=== PATIENT | male | born 1980 | race Caucasian/White ===

== ENCOUNTER 2018-06-14 21:10 | Emergency (ER) | payer MEDICARE, OTHER, MEDICAID ==
[2018-06-14] MEDS ORDERED: LIDOCAINE 1% 2 ML VIAL INJ ONE (21:20)
[2018-06-14] MEDS ORDERED: LIDOCAINE HCL 2% (MOUTH-THROAT) 15 ML UD ONE (21:28)
[2018-06-14] MEDS ORDERED: FLUCONAZOLE 100 MG TAB GT ONE (22:35)
[2018-06-14] MEDS ORDERED: levoFLOXacin 500 MG TAB GT ONE (22:35)
[2018-06-14] MEDS ORDERED: predniSONE 20 MG TAB PO ONE (22:36)
--- NOTE | 2018-06-14 22:40 | ED.PDOC ---
History of Present Illness - General Chief Complaint: Respiratory Problem Time Seen by Provider: 06/14/18 21:39 Source: patient, [facility] Exam Limitations: clinical condition - History of Present Illness Initial Comments: The patient's a 37-year-old male sent from [facility] secondary to difficulty with removing his tracheostomy. Staff is attempting to change of tracheostomy however they were unable to remove it. He is not having any difficulty breathing. There is some irritation surrounding the tracheostomy site. No evidence of any abscess or really very significant cellulitis. He has been oxygenating well without any difficulties with breathing. No fevers. Timing/Duration: 1 hour Severity: mild Improving Factors: nothing Worsening Factors: nothing Associated Symptoms: denies symptoms Allergies/Adverse Reactions: Allergies Hydrocodone Allergy (Mild, Verified 12/01/15 17:32) Other Rash, hives Morphine Allergy (Mild, Verified 12/01/15 17:32) Other Hives, itching, crying, humming Sulfamethoxazole w/Trimethoprim [From Bactrim] Allergy (Mild, Verified 12/01/15 17:32) Rash Home Medications: Ambulatory Orders Aluminum & Magnesium Hydroxide [Maalox] 30 ml PEG DAILY #0 08/27/13 Aspirin 325 mg PEG DAILY #0 08/27/13 Demeclocycline HCl 300 mg PEG QID #0 08/27/13 Docusate Sodium [Diocto] 100 mg PEG BID #0 08/27/13 Esomeprazole Magnesium [Nexium] 40 mg PEG DAILY #0 08/27/13 Ipratropium [place] Nebs [Atrovent NEBS] 2.5 ml INH QID #0 08/27/13 Magnesium Hydroxide [Milk Of Magnesia] 30 ml PEG DAILY PRN #0 ud 08/27/13 Sennosides [Natural Senna Laxative] 1 tab PEG BID #0 08/27/13 Acetaminophen Suppository [Tylenol Suppository] 650 mg PEG Q4-6H PRN 09/19/14 Diphenhydramine HCl [Benadryl Allergy] 25 mg PEG .Q8HR PRN 09/19/14 Ipratropium/Albuterol [Duoneb] 3 ml INH .Q6H PRN 09/19/14 Promethazine Supp [Phenergan Suppository] 25 mg PEG .Q6H PRN 09/19/14 Levofloxacin [Levaquin] 250 mg GT DAILY #3 tablet 06/14/18 predniSONE [Prednisone] 20 mg GT DAILY #3 tab 06/14/18 Review of Systems - Review of Systems Constitutional: States: no symptoms reported EENTM: States: other - little bit of increased pain around his ostomy site. Respiratory: States: no symptoms reported Cardiology: States: no symptoms reported Gastrointestinal/Abdominal: States: no symptoms reported Genitourinary: States: no symptoms reported Musculoskeletal: States: no symptoms reported Skin: States: no symptoms reported Neurological: States: no symptoms reported All other Systems: No Change from Baseline Past Medical History (General) - Patient Medical History Hx Seizures: No Hx Stroke: Yes Hx Dementia: No Hx Asthma: No Hx of COPD: No Hx Cardiac Disorders: Yes Hx Congestive Heart Failure: No Hx Pacemaker: No Hx Hypertension: No Hx Thyroid Disease: No Hx Diabetes: No Hx Gastroesophageal Reflux: No Hx Renal Disease: No Hx Cancer: Yes - brain Hx of HIV: No Hx MRSA: No MRSA Source:: LUNGS - Social History Hx Tobacco Use: No Hx Alcohol Use: No Hx Substance Use: No Hx Physical Abuse: No Hx Emotional Abuse: No Family Medical History - Family History Mother Family History: Unknown Physical Exam - Physical Exam General Appearance: Alert, Comfortable, No apparent distress Eye Exam: bilateral normal Ears, Nose, Throat: hearing grossly normal, normal ENT inspection, normal pharynx Neck: other - tracheostomy is in place however there is mild inflammation of tracheostomy site. Respiratory: lungs clear, normal breath sounds, no respiratory distress, no accessory muscle use - the patient is not requiring the ventilator at this time. 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 Upon arrival I prepared the replacement tracheostomy and was unable to remove the old one even with a fair amount of force. A second attempt was tried after some lidocaine gel was applied around the tracheostomy site to reduce discomfort. He did have a small amount of bleeding, but I was again unable to remove it. Subsequently a nasal laryngoscope was used to look down the tracheostomy tube which showed that the tracheal tissue was growing in through the fenestrations on both sides of the tube. The tube is still widely patent and the patient is having no difficulty with breathing through it. I did confer with the slot machine key person nurse practitioner at [facility] who agreed that being that this is a nonemergent situation and the patient does indeed have a patent airway and is in no distress, that further manipulation and attempts to remove it here would lead to the possibility of bleeding that cannot be easily controlled with the instruments that we have present here. It is recommended that the patient be set up with ENT in the coming week for removal and replacement in a controlled setting. The reason for the growth of the tissue through fenestrations is uncertain. There may be underlying inflammation or infection stimulating it. For this reason the patient has received a dose of Diflucan here today. He will also be placed on Levaquin 250 mg daily for 7 days and prednisone 20 mg daily for 3 days. ER warnings are given. The patient is using the tracheostomy without difficulty at this time. Departure - Departure Clinical Impression: Tracheostomy complication Qualifiers: Tracheostomy complication: unspecified Qualified Code(s): J95.00 - Unspecified tracheostomy complication Disposition: Discharge to SNF Condition: Fair Departure Forms: ED Discharge - Pt. Copy, Patient Portal Self Enrollment Diet: regular diet Activity: increase activity as tolerated Referrals: CHOCO FRANCIS [Primary Care Provider] - 1-2 Weeks Prescriptions: Levofloxacin [Levaquin] 250 mg GT DAILY #3 tablet predniSONE [Prednisone] 20 mg GT DAILY #3 tab Home Medications: Ambulatory Orders Aluminum & Magnesium Hydroxide [Maalox] 30 ml PEG DAILY #0 08/27/13 Aspirin 325 mg PEG DAILY #0 08/27/13 Demeclocycline HCl 300 mg PEG QID #0 08/27/13 Docusate Sodium [Diocto] 100 mg PEG BID #0 08/27/13 Esomeprazole Magnesium [Nexium] 40 mg PEG DAILY #0 08/27/13 Ipratropium [place] Nebs [Atrovent NEBS] 2.5 ml INH QID #0 08/27/13 Magnesium Hydroxide [Milk Of Magnesia] 30 ml PEG DAILY PRN #0 ud 08/27/13 Sennosides [Natural Senna Laxative] 1 tab PEG BID #0 08/27/13 Acetaminophen Suppository [Tylenol Suppository] 650 mg PEG Q4-6H PRN 09/19/14 Diphenhydramine HCl [Benadryl Allergy] 25 mg PEG .Q8HR PRN 09/19/14 Ipratropium/Albuterol [Duoneb] 3 ml INH .Q6H PRN 09/19/14 Promethazine Supp [Phenergan Suppository] 25 mg PEG .Q6H PRN 09/19/14 Levofloxacin [Levaquin] 250 mg GT DAILY #3 tablet 06/14/18 predniSONE [Prednisone] 20 mg GT DAILY #3 tab 06/14/18 Additional Instructions: the patient's a 37-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 Upon arrival I prepared the replacement tracheostomy and was unable to remove the old one even with a fair amount of force. A second attempt was tried after some lidocaine gel was applied around the tracheostomy site to reduce discomfort. He did have a small amount of bleeding, but I was again unable to remove it. Subsequently a nasal laryngoscope was used to look down the tracheostomy tube which showed that the tracheal tissue was growing in through the fenestrations on both sides of the tube. The tube is still widely patent and the patient is having no difficulty with breathing through it. I did confer with the slot machine key person nurse practitioner at [facility] who agreed that being that this is a nonemergent situation and the patient does indeed have a patent airway and is in no distress, that further manipulation and attempts to remove it here would lead to the possibility of bleeding that cannot be easily controlled with the instruments that we have present here. It is recommended that the patient be set up with ENT in the coming week for removal and replacement in a controlled setting. The reason for the growth of the tissue through fenestrations is uncertain. There may be underlying inflammation or infection stimulating it. For this reason the patient has received a dose of Diflucan here today. He will also be placed on Levaquin 250 mg daily for 7 days and prednisone 20 mg daily for 3 days. ER warnings are given. The patient is using the tracheostomy without difficulty at this time.
[2018-06-15 06:36] VITALS: TEMP 96.6
[2018-06-15 06:51] VITALS: BP 124/69; O2SAT 99
== END 2018-06-14 23:55 ==
LOC: ER 21:10
DX: J95.09 Other tracheostomy complication (principal); Z79.82 Long term (current) use of aspirin; Z79.899 Other long term (current) drug therapy; Z86.73 Personal history of transient ischemic attack (TIA), and cerebral infarction without residual deficits

== ENCOUNTER 2018-07-31 13:26 | Emergency (ER) | payer MEDICARE, MEDICAID, OTHER ==
--- NOTE | 2018-07-31 13:35 | ED.PDOC ---
History of Present Illness - General Time Seen by Provider: 07/31/18 13:31 Source: EMS Exam Limitations: clinical condition, physical impairment - History of Present Illness Initial Comments: Per EMS. Patient presents from [facility] after staff noticed that he was not as responsive as his baseline. He is permanently intubated. He does respond to questions with nods and shakes of his head and can ambulate with assistance. He normally can point as well. He was asked if he was in pain and he nodded but was unable to point to where the pain is. No other history is available due to patient's clinical condition. Timing/Duration: 4-6 hours Severity: mild Improving Factors: nothing Worsening Factors: nothing Associated Symptoms: denies symptoms Allergies/Adverse Reactions: Allergies Hydrocodone Allergy (Mild, Verified 12/01/15 17:32) Other Rash, hives Morphine Allergy (Mild, Verified 12/01/15 17:32) Other Hives, itching, crying, humming Sulfamethoxazole w/Trimethoprim [From Bactrim] Allergy (Mild, Verified 12/01/15 17:32) Rash Home Medications: Ambulatory Orders Docusate Sodium [Diocto] 100 mg PEG BID #0 08/27/13 Esomeprazole Magnesium [Nexium] 40 mg PEG DAILY #0 08/27/13 Magnesium Hydroxide [Milk Of Magnesia] 30 ml PEG DAILY PRN #0 ud 08/27/13 Sennosides [Natural Senna Laxative] 1 tab PEG BID #0 08/27/13 Diphenhydramine HCl [Benadryl Allergy] 25 mg PEG .Q8HR PRN 09/19/14 Acetaminophen [Acetaminophen ER] 650 mg PEG Q4H PRN 07/31/18 Albuterol Sulfate Nebs [Proventil Nebs] 2.5 mg INH Q6H PRN 07/31/18 Aluminum & Magnesium Hydroxide [Maalox] 30 ml PEG DAILY PRN 07/31/18 Chlorhexidine Gluconate (Mouth [Chlorhexidine Gluconate] 0.12 % MT DAILY Cyanocobalamin [B-12] 1,000 mcg PEG DAILY 07/31/18 Demeclocycline HCl 300 mg PEG TID 07/31/18 FLUoxetine HCL [Prozac] 10 mg PEG DAILY 07/31/18 Ferrous Sulfate 7.5 ml PEG DAILY 07/31/18 Folic Acid 1 mg PEG DAILY 07/31/18 Ipratropium [place] Nebs [Atrovent NEBS] 2.5 ml INH BID 07/31/18 Lidocaine HCl (Cardiac) [Lidocaine HCl] 1 ml INH Q6H PRN 07/31/18 Ondansetron HCl [Zofran] 8 mg PEG Q8H PRN 07/31/18 Potassium Chloride [Potassium Chloride ER] 10 meq PEG DAILY 07/31/18 Sucralfate Tab [Carafate Tab] 1 gm PEG BID 07/31/18 Valproic Acid Syrup [Depakene Syrup] 250 mg PEG BID 07/31/18 Review of Systems - Review of Systems Unable to Obtain Due To: condition, clinical condition Past Medical History (General) - Patient Medical History Hx Seizures: No Hx Stroke: Yes Hx Dementia: No Hx Asthma: No Hx of COPD: No Hx Cardiac Disorders: Yes Hx Congestive Heart Failure: No Hx Pacemaker: No Hx Hypertension: No Hx Thyroid Disease: No Hx Diabetes: No Hx Gastroesophageal Reflux: No Hx Renal Disease: No Hx Cancer: Yes - brain Hx of HIV: No Hx MRSA: No MRSA Source:: LUNGS - Social History Hx Tobacco Use: No Hx Alcohol Use: No Hx Substance Use: No Hx Physical Abuse: No Hx Emotional Abuse: No Family Medical History - Family History Mother Family History: Unknown Physical Exam - Physical Exam General Appearance: No apparent distress Eye Exam: bilateral normal Ears, Nose, Throat: normal ENT inspection Neck: non-tender, full range of motion, supple Respiratory: lungs clear, normal breath sounds, other - tracheostomy tube in place Gastrointestinal/Abdominal: normal bowel sounds, non tender, soft Extremity: normal range of motion, non-tender, normal inspection 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 Normal wbc. Patient given Zosyn 3.375 grams IV x one for Pseudomonas for presumption nosocomial acquired pneumonia. 07/31/18 13:31 UA [URINALYSIS] Stat 07/31/18 13:45 EKG STAT 07/31/18 15:54 BLOOD CULTURE Stat 07/31/18 16:48 Piperacillin/Tazobactam [Zosyn] 3.375 gm Sodium Chloride 0.9% 100Ml [NS (NACL 0.9%) 100ml] 100 ml IVPB ONCE Laboratory Results - last 24 hr 07/31/18 07/31/18 07/31/18 13:15 13:15 13:15 WBC 4.5 L RBC 4.12 L Hgb 12.4 L Hct 37.4 L MCV 90.9 MCH 30.0 MCHC 33.2 RDW 13.9 Plt Count 206 MPV 7.5 Absolute Neuts (auto) 1.70 L Absolute Lymphs (auto) 2.00 Absolute Monos (auto) 0.70 Absolute Eos (auto) 0.10 Absolute Basos (auto) 0.00 Neutrophils % 37.7 L Lymphocytes % 44.2 Monocytes % 15.2 H Eosinophils % 2.2 Basophils % 0.7 Sodium 133 L Potassium 4.0 Chloride 92 L Carbon Dioxide 33 H Anion Gap 12.0 BUN 15 Creatinine 0.70 BUN/Creatinine Ratio 21.4 H Random Glucose 104 Serum Osmolality 267.5 L Lactic Acid Calcium 9.1 Total Bilirubin 0.3 AST 42 ALT 61 H Alkaline Phosphatase 67 Serum Total Protein 7.6 Albumin 3.6 Globulin 4.0 H Albumin/Globulin Ratio 0.9 L TSH Thyroxine (T4) Valproic Acid 59.8 07/31/18 07/31/18 14:15 15:54 WBC RBC Hgb Hct MCV MCH MCHC RDW Plt Count MPV Absolute Neuts (auto) Absolute Lymphs (auto) Absolute Monos (auto) Absolute Eos (auto) Absolute Basos (auto) Neutrophils % Lymphocytes % Monocytes % Eosinophils % Basophils % Sodium Potassium Chloride Carbon Dioxide Anion Gap BUN Creatinine BUN/Creatinine Ratio Random Glucose Serum Osmolality Lactic Acid 0.9 Calcium Total Bilirubin AST ALT Alkaline Phosphatase Serum Total Protein Albumin Globulin Albumin/Globulin Ratio TSH 6.12 H Thyroxine (T4) 6.42 Valproic Acid Departure - Departure Clinical Impression: Pneumonia Disposition: Discharge to Home or Self Care Condition: Good Diet: resume usual diet Activity: as per physical therapy Referrals: CHOOC FRANCIS [Primary Care Provider] - 1-2 Weeks Home Medications: Ambulatory Orders Docusate Sodium [Diocto] 100 mg PEG BID #0 08/27/13 Esomeprazole Magnesium [Nexium] 40 mg PEG DAILY #0 08/27/13 Magnesium Hydroxide [Milk Of Magnesia] 30 ml PEG DAILY PRN #0 ud 08/27/13 Sennosides [Natural Senna Laxative] 1 tab PEG BID #0 08/27/13 Diphenhydramine HCl [Benadryl Allergy] 25 mg PEG .Q8HR PRN 09/19/14 Acetaminophen [Acetaminophen ER] 650 mg PEG Q4H PRN 07/31/18 Albuterol Sulfate Nebs [Proventil Nebs] 2.5 mg INH Q6H PRN 07/31/18 Aluminum & Magnesium Hydroxide [Maalox] 30 ml PEG DAILY PRN 07/31/18 Chlorhexidine Gluconate (Mouth [Chlorhexidine Gluconate] 0.12 % MT DAILY Cyanocobalamin [B-12] 1,000 mcg PEG DAILY 07/31/18 Demeclocycline HCl 300 mg PEG TID 07/31/18 FLUoxetine HCL [Prozac] 10 mg PEG DAILY 07/31/18 Ferrous Sulfate 7.5 ml PEG DAILY 07/31/18 Folic Acid 1 mg PEG DAILY 07/31/18 Ipratropium [place] Nebs [Atrovent NEBS] 2.5 ml INH BID 07/31/18 Lidocaine HCl (Cardiac) [Lidocaine HCl] 1 ml INH Q6H PRN 07/31/18 Ondansetron HCl [Zofran] 8 mg PEG Q8H PRN 07/31/18 Potassium Chloride [Potassium Chloride ER] 10 meq PEG DAILY 07/31/18 Sucralfate Tab [Carafate Tab] 1 gm PEG BID 07/31/18 Valproic Acid Syrup [Depakene Syrup] 250 mg PEG BID 07/31/18 Additional Instructions: Zosyn 3.375 grams IV q6 hours x 7 days. Follow up with regular doctor in 7 days.
--- NOTE | 2018-07-31 13:57 | RAD ---
EXAM DESCRIPTION: Chest,1 View CLINICAL HISTORY: 37 years Male, altered mental status COMPARISON: Previous study September 19, 2014 TECHNIQUE: AP portable chest. FINDINGS: Heart size is prominent with centrally increased pulmonary vascularity. Tracheostomy tube tip is at the level of the clavicles, situated approximately 4.4 cm above the susanne. Infiltrate is seen in the left lower lobe obscuring the left hemidiaphragm consistent with pneumonia. This appears new or worsened compared to previous study. Discoid atelectasis in right perihilar region is seen above elevated right hemidiaphragm. Follow-up is recommended to ensure complete clearance of the left lower lobe density. No pneumothorax or pleural effusion. Bones are unremarkable. IMPRESSION: Abnormal density in the left lower lobe most likely pneumonia. Follow-up is recommended to ensure complete clearance. Prominent heart with centrally increased pulmonary vascularity. Electronically signed by: Erickson Montemayor MD 07/31/2018 1:55 PM CDT
[2018-07-31] MEDS ORDERED: SODIUM CHLORIDE 0.9% 1000ML 1,000 ML IVS ONE (15:19)
[2018-07-31 15:22] VITALS: O2SAT 100
[2018-07-31 16:07] VITALS: TEMP 96.4
[2018-07-31] MEDS ORDERED: PIPERACILLIN/TAZOBACTAM 3.375 GM in SODIUM CHLORIDE 0.9% 100ML 100 ML IVPB ONE (16:48)
[2018-07-31] MEDS ORDERED: PIPERACILLIN/TAZOBACTAM 3.375 GM VIAL IVPB ONE (16:49)
[2018-07-31] MEDS ORDERED: SODIUM CHLORIDE 0.9% 100ML 100 ML IVPB ONE (16:49)
[2018-07-31 18:27] VITALS: BP 106/70
== END 2018-07-31 18:27 ==
LOC: ER 13:26
DX: J18.9 Pneumonia, unspecified organism (principal); Z99.11 Dependence on respirator [ventilator] status; I51.9 Heart disease, unspecified; Z86.73 Personal history of transient ischemic attack (TIA), and cerebral infarction without residual deficits; Z85.841 Personal history of malignant neoplasm of brain; Z79.899 Other long term (current) drug therapy; Z88.5 Allergy status to narcotic agent; Z88.2 Allergy status to sulfonamides
CPT/HCPCS: 71045; 80053; 80164; 83605; 84436; 84443; 85025; 87040; 93005; J2543; J7030; J7050

== ENCOUNTER 2019-03-05 13:36 | Emergency (ER) | payer MEDICARE, MEDICAID, OTHER ==
--- NOTE | 2019-03-05 14:55 | RAD ---
XR CHEST 1 VIEW HISTORY: 38 years Male choking COMPARISON: July 31, 2018. TECHNIQUE: Single AP view of the chest. FINDINGS: Right upper extremity projects over the chest, limiting the exam. Low lung volumes with bronchovascular crowding. Increased ill-defined attenuation in the left lung base again may represent focal consolidation versus atelectasis. This appears slightly increased from the prior comparison study. No evidence of a pleural effusion or pneumothorax. Cardiomediastinal silhouette appears unchanged. Tracheostomy tube again demonstrated, unchanged in position. Included osseous structures demonstrate no acute process. [employer] shunt tubing again projects over the right chest. IMPRESSION: Possible left lower lung consolidation and/or atelectasis. Findings appear slightly worsened from the prior comparison study. Pneumonia would be of consideration in the appropriate setting. Electronically signed by: Rayray Epstein MD 03/05/2019 2:52 PM CDT
--- NOTE | 2019-03-05 15:06 | CT ---
EXAM DESCRIPTION: Head CLINICAL HISTORY: facial droop COMPARISON: Multiple prior CTs of the head. Most recent comparison is dated December 01, 2015. The oldest comparison is dated August 02, 2008. TECHNIQUE: Axial CT images of the head were performed without contrast. This exam was performed according to our departmental dose-optimization program which includes automated exposure control, adjustment of the mA and/or kV according to patient size and/or use of iterative reconstruction technique. FINDINGS: Since the most recent comparison 2016 study, a 4.2 cm mass has developed within the high right frontal lobe region. A similar yet smaller masses seen over the left frontal lobe measuring up to 1.3 cm. This smaller lesion was present on the 2016 study measuring 0.6 cm. These masses appear to be extra-axial displacing the adjacent brain parenchyma. The mass on the right is causing regional mass effect with mild right to left midline displacement of the falx by 0.2 cm. Adjacent vasogenic edema seen within the right frontal lobe white matter. Right frontal approach intraventricular shunt catheters present with tip projecting over the third ventricle. The ventricles are dilated with respect to the most recent 2016 comparison. The fourth ventricle is not well seen due to excessive beam hardening artifact from the battery pack overlying the left occipital bone. No shunt tubing discontinuity is demonstrated. No hyperattenuating blood products are demonstrated. Stable dystrophic calcifications overlying the left cerebellum similar appearance to multiple studies dating back to 2007. Several vascular coils and clips are present similar appearance to multiple prior studies. Multiple old insults/areas of encephalomalacia involving the left frontal, left parietal, and bilateral occipital lobes. Old dystrophic calcification seen overlying the left cerebellum similar in appearance to multiple priors. Left-sided mastoidectomy. Left-sided cochlear implant. Bilateral mastoid effusions without jg trabecular destruction. IMPRESSION: Interval development of a 4.2 cm mass overlying the right frontal lobe. The mass appears to be extra-axial and is causing regional mass effect on the right frontal lobe. Mild 2 mm right to left midline shift. The short interval development of this lesion is suspicious for high-grade neoplastic disease (lymphoma or metastasis). Meningioma is less likely. 1.3 cm dural-based mass over the left frontal lobe of the falx. This has a more classic appearance of a meningioma. Hydrocephalus that has developed since the 2016 comparison concerning for shunt malfunction. No shunt tubing discontinuity is demonstrated on the study. Stable appearance to chronic findings described above. Electronically signed by: Brendan Perry MD 03/05/2019 3:02 PM CDT
--- NOTE | 2019-03-05 16:18 | ED.PDOC ---
History of Present Illness - General Chief Complaint: Respiratory Problem Stated Complaint: halfway states choking on food Time Seen by Provider: 03/05/19 13:57 Source: RN notes reviewed, Vital Signs reviewed, EMS Exam Limitations: physical impairment - History of Present Illness Initial Comments: halfway staff was feeding him when they noted the left side of his face was quivering & he wasn't swallowing his food. Timing/Duration: resolved prior to arrival Severity: mild Improving Factors: nothing Worsening Factors: nothing Allergies/Adverse Reactions: Allergies Hydrocodone Allergy (Mild, Verified 12/01/15 17:32) Other Rash, hives Morphine Allergy (Mild, Verified 12/01/15 17:32) Other Hives, itching, crying, humming Sulfamethoxazole w/Trimethoprim [From Bactrim] Allergy (Mild, Verified 12/01/15 17:32) Rash Home Medications: Ambulatory Orders Docusate Sodium [Diocto] 100 mg PEG BID #0 08/27/13 Esomeprazole Magnesium [Nexium] 40 mg PEG DAILY #0 08/27/13 Magnesium Hydroxide [Milk Of Magnesia] 30 ml PEG DAILY PRN #0 ud 08/27/13 Sennosides [Natural Senna Laxative] 1 tab PEG BID #0 08/27/13 Diphenhydramine HCl [Benadryl Allergy] 25 mg PEG .Q8HR PRN 09/19/14 Acetaminophen [Acetaminophen ER] 650 mg PEG Q4H PRN 07/31/18 Albuterol Sulfate Nebs [Proventil Nebs] 2.5 mg INH Q6H PRN 07/31/18 Aluminum & Magnesium Hydroxide [Maalox] 30 ml PEG DAILY PRN 07/31/18 Chlorhexidine Gluconate (Mouth [Chlorhexidine Gluconate] 0.12 % MT DAILY 07/31/18 Cyanocobalamin [B-12] 1,000 mcg PEG DAILY 07/31/18 Demeclocycline HCl 300 mg PEG TID 07/31/18 FLUoxetine HCL [Prozac] 10 mg PEG DAILY 07/31/18 Ferrous Sulfate 7.5 ml PEG DAILY 07/31/18 Folic Acid 1 mg PEG DAILY 07/31/18 Ipratropium [place] Nebs [Atrovent NEBS] 2.5 ml INH BID 07/31/18 Lidocaine HCl (Cardiac) [Lidocaine HCl] 1 ml INH Q6H PRN 07/31/18 Ondansetron HCl [Zofran] 8 mg PEG Q8H PRN 07/31/18 Potassium Chloride [Potassium Chloride ER] 10 meq PEG DAILY 07/31/18 Sucralfate Tab [Carafate Tab] 1 gm PEG BID 07/31/18 Valproic Acid Syrup [Depakene Syrup] 250 mg PEG BID 07/31/18 Review of Systems - Review of Systems Constitutional: States: no symptoms reported EENTM: States: no symptoms reported Respiratory: States: no symptoms reported Gastrointestinal/Abdominal: Denies: diarrhea, vomiting Neurological: States: see HPI, pre-existing deficit Unable to Obtain Due To: condition Past Medical History (General) - Patient Medical History Hx Seizures: Yes Hx Stroke: Yes Hx Dementia: No Hx Asthma: Yes Hx of COPD: Yes Hx Cardiac Disorders: Yes Hx Congestive Heart Failure: No Hx Pacemaker: No Hx Hypertension: No Hx Thyroid Disease: No Hx Diabetes: No Hx Gastroesophageal Reflux: No Hx Renal Disease: No Hx Cancer: No Hx of HIV: No Hx Hepatitis C: No Hx MRSA: No MRSA Source:: LUNGS - Vaccination History Hx Tetanus, Diphtheria Vaccination: Yes Hx Influenza Vaccination: Yes Hx Pneumococcal Vaccination: Yes Immunizations Up to Date: No - Social History Hx Tobacco Use: No Hx Chewing Tobacco Use: No Hx Alcohol Use: No Hx Substance Use: No Hx Substance Use Treatment: No Hx Depression: No Feels Threatened In Home Enviroment: No Feels Threatened In a Relationship: No Hx Physical Abuse: No Hx Emotional Abuse: No Hx Suspected Abuse: No - Activities of Daily Living [facility]isted [facility] (if applicable):: [facility] Agency (if applicable):: None - Female History Patient is a Female of Child Bearing Age (10 -59 yrs old): No Patient : No Family Medical History - Family History Mother Family History: Unknown Living Status: Hx Family Asthma: No Hx Family Congestive Heart Failure: No Physical Exam - Physical Exam General Appearance: Comfortable, No apparent distress, Other - appears to be sleeping Eye Exam: bilateral normal Ears, Nose, Throat: hearing decreased, pharyngeal erythema Neck: supple, normal inspection Respiratory: normal breath sounds, no respiratory distress Cardiovascular/Chest: regular rate, rhythm, no JVD Gastrointestinal/Abdominal: non tender, soft Extremity: normal inspection, normal capillary refill Neurologic: aphasia, disoriented x 3 Skin Exam: normal color, warm/dry Progress - Progress Progress: 03/05/19 18:02 awaiting transfer. Appears improved. Eyes ar eopen more. His family has said this is his baseline. - Results/Orders Results/Orders: WBC 7 Hgb 11 Glu 89 Na 135 Strep + (all strep tests done today have been positive - lab error?. Re-test at [facility].)) - EKG/XRAY/CT EKG: Sinus, no ST T wave changes - NSR @74, artifact, nml axis, intervals, QRS, ST segments & T waves XRAY: chest - no acute process CT Ordered: Yes - brain masses x 2. Hydrocephalus. - Consult/PCP Time Called: 16:05 Consult/PCP: Dr. Barcenas & [facility] Departure - Departure Clinical Impression: Brain mass Time of Disposition: 16:22 Disposition: Transfer to Hospital Condition: Fair Referrals: CHOCO FRANCIS [Primary Care Provider] - 1-2 Weeks Home Medications: Ambulatory Orders Docusate Sodium [Diocto] 100 mg PEG BID #0 08/27/13 Esomeprazole Magnesium [Nexium] 40 mg PEG DAILY #0 08/27/13 Magnesium Hydroxide [Milk Of Magnesia] 30 ml PEG DAILY PRN #0 ud 08/27/13 Sennosides [Natural Senna Laxative] 1 tab PEG BID #0 08/27/13 Diphenhydramine HCl [Benadryl Allergy] 25 mg PEG .Q8HR PRN 09/19/14 Acetaminophen [Acetaminophen ER] 650 mg PEG Q4H PRN 07/31/18 Albuterol Sulfate Nebs [Proventil Nebs] 2.5 mg INH Q6H PRN 07/31/18 Aluminum & Magnesium Hydroxide [Maalox] 30 ml PEG DAILY PRN 07/31/18 Chlorhexidine Gluconate (Mouth [Chlorhexidine Gluconate] 0.12 % MT DAILY 07/31/18 Cyanocobalamin [B-12] 1,000 mcg PEG DAILY 07/31/18 Demeclocycline HCl 300 mg PEG TID 07/31/18 FLUoxetine HCL [Prozac] 10 mg PEG DAILY 07/31/18 Ferrous Sulfate 7.5 ml PEG DAILY 07/31/18 Folic Acid 1 mg PEG DAILY 07/31/18 Ipratropium [place] Nebs [Atrovent NEBS] 2.5 ml INH BID 07/31/18 Lidocaine HCl (Cardiac) [Lidocaine HCl] 1 ml INH Q6H PRN 07/31/18 Ondansetron HCl [Zofran] 8 mg PEG Q8H PRN 07/31/18 Potassium Chloride [Potassium Chloride ER] 10 meq PEG DAILY 07/31/18 Sucralfate Tab [Carafate Tab] 1 gm PEG BID 07/31/18 Valproic Acid Syrup [Depakene Syrup] 250 mg PEG BID 07/31/18 Transfer to Outside Facility - Transfer Information Accepting Facility: [facility] Reason for Transfer: required specialist not available - neurosurgery
[2019-03-05] MEDS ORDERED: DEXAMETHASONE INJ 10 MG/ML VIAL IV ONE (16:53)
[2019-03-05 19:05] VITALS: BP 137/80; TEMP 94.1; O2SAT 97
== END 2019-03-05 19:05 | disposition short-term general hospital (02) ==
LOC: ER 13:36
DX: R22.0 Localized swelling, mass and lump, head (principal); G91.9 Hydrocephalus, unspecified; R47.01 Aphasia; R56.9 Unspecified convulsions; J44.9 Chronic obstructive pulmonary disease, unspecified; I51.9 Heart disease, unspecified; Z86.73 Personal history of transient ischemic attack (TIA), and cerebral infarction without residual deficits; Z79.899 Other long term (current) drug therapy; Z88.5 Allergy status to narcotic agent; Z88.2 Allergy status to sulfonamides
CPT/HCPCS: 36415; 70450; 71045; 80048; 82550; 82553; 84484; 85025; 85379; 85610; 85730; 87880; 93005; J1100

== ENCOUNTER → 2020-06-25 | Outpatient (CLI) | payer MEDICARE, MEDICAID, OTHER | LOC: GOCC 11:23 | PROVIDERS: ATTEND Internal Medicine | DX: J96.11 Chronic respiratory failure with hypoxia (principal); J44.1 Chronic obstructive pulmonary disease with (acute) exacerbation; J22 Unspecified acute lower respiratory infection; R49.1 Aphonia; R13.12 Dysphagia, oropharyngeal phase; Z29.9 Encounter for prophylactic measures, unspecified; K21.9 Gastro-esophageal reflux disease without esophagitis; G81.90 Hemiplegia, unspecified affecting unspecified side; E87.6 Hypokalemia; D50.9 Iron deficiency anemia, unspecified; M62.59 Muscle wasting and atrophy, not elsewhere classified, multiple sites; R26.89 Other abnormalities of gait and mobility; F80.89 Other developmental disorders of speech and language; B96.89 Other specified bacterial agents as the cause of diseases classified elsewhere; R54 Age-related physical debility; I63.50 Cerebral infarction due to unspecified occlusion or stenosis of unspecified cerebral artery; Z20.09 Contact with and (suspected) exposure to other intestinal infectious diseases; R13.10 Dysphagia, unspecified; G40.919 Epilepsy, unspecified, intractable, without status epilepticus; Z93.1 Gastrostomy status; G91.9 Hydrocephalus, unspecified; E03.9 Hypothyroidism, unspecified; M62.81 Muscle weakness (generalized); F32.9 Major depressive disorder, single episode, unspecified; I68.8 Other cerebrovascular disorders in diseases classified elsewhere; K59.09 Other constipation; R27.8 Other lack of coordination; D51.8 Other vitamin B12 deficiency anemias; H62.40 Otitis externa in other diseases classified elsewhere, unspecified ear; Z93.0 Tracheostomy status; I69.90 Unspecified sequelae of unspecified cerebrovascular disease; E53.9 Vitamin B deficiency, unspecified; J18.9 Pneumonia, unspecified organism; E46 Unspecified protein-calorie malnutrition; R26.81 Unsteadiness on feet ==

== ENCOUNTER 2020-07-02 04:16 | Emergency (ER) | payer MEDICARE, MEDICAID, OTHER ==
--- NOTE | 2020-07-02 05:32 | RAD ---
EXAM: XR Chest, 1 View CLINICAL HISTORY: The patient is 39 years old and is Male; Seizure TECHNIQUE: Single upright portable view of the chest. COMPARISON: March 05, 2019. FINDINGS: Lungs: Left basilar subsegmental atelectasis. No pulmonary vascular congestion. Pleural space: Unremarkable. No pneumothorax. Heart: Unremarkable. No cardiomegaly. Mediastinum: Unremarkable. Bones/joints: No acute fracture visualized. Tubes, lines and devices: Right-sided [employer] shunt catheter and tracheostomy tube again noted. Upper abdomen: No free air in the visualized upper abdomen. IMPRESSION: 1. Left basilar subsegmental atelectasis. 2. Right-sided [employer] shunt catheter and tracheostomy tube again noted. Electronically signed by: Phylicia Almonte MD 07/02/2020 5:30 AM CDT
--- NOTE | 2020-07-02 06:11 | ED.PDOC ---
History of Present Illness - General Chief Complaint: Neuro Symptoms/Deficits Time Seen by Provider: 07/02/20 06:09 Source: RN notes reviewed, Vital Signs reviewed Exam Limitations: clinical condition, physical impairment - Patient is minimally communicative and will only communicate with a thumbs up or thumbs down. - History of Present Illness Initial Comments: Patient was brought from [facility] secondary to a seizure. On arrival in the department patient was not having any seizures. Patient has been awake and alert since arrival. Patient does not communicate verbally and only occasionally will indicate a thumbs up. Per the [facility] this is his baseline. Family was contacted by nursing and they are aware of his being in the emergency department. At the current time, patient is full code. Timing/Duration: 1-3 hours Severity: mild Improving Factors: nothing Worsening Factors: nothing Associated Symptoms: other - Patient does not communicate any other problems. Allergies/Adverse Reactions: Allergies Hydrocodone Allergy (Mild, Verified 12/01/15 17:32) Other Rash, hives Morphine Allergy (Mild, Verified 12/01/15 17:32) Other Hives, itching, crying, humming Sulfamethoxazole w/Trimethoprim [From Bactrim] Allergy (Mild, Verified 12/01/15 17:32) Rash Home Medications: Ambulatory Orders Docusate Sodium [Diocto] 100 mg PEG BID #0 08/27/13 Esomeprazole Magnesium [Nexium] 40 mg PEG DAILY #0 08/27/13 Magnesium Hydroxide [Milk Of Magnesia] 30 ml PEG DAILY PRN #0 ud 08/27/13 Sennosides [Natural Senna Laxative] 1 tab PEG BID #0 08/27/13 Albuterol Sulfate Nebs [Proventil Nebs] 2.5 mg INH Q6H PRN 07/31/18 Aluminum & Magnesium Hydroxide [Maalox] 30 ml PEG DAILY PRN 07/31/18 Chlorhexidine Gluconate (Mouth [Chlorhexidine Gluconate] 0.12 % MT DAILY 07/31/18 Cyanocobalamin [B-12] 1,000 mcg PEG DAILY 07/31/18 FLUoxetine HCL [Prozac] 20 mg PEG DAILY 07/31/18 Ipratropium [place] Nebs [Atrovent NEBS] 2.5 ml INH BID 07/31/18 Lidocaine HCl (Cardiac) [Lidocaine HCl] 1 ml INH Q6H PRN 07/31/18 Bioflavonoid Products [[id number]] 1 tab PEG DAILY 07/02/20 Hydrocortisone 10 mg PO DAILY 07/02/20 Levothyroxine Sodium 75 mcg PEG 07/02/20 levETIRAcetam SUSPENSION [Keppra] 10 ml PEG BID 07/02/20 Review of Systems - Review of Systems Constitutional: States: see HPI Neurological: States: see HPI, pre-existing deficit, seizure, weakness Unable to Obtain Due To: condition, clinical condition All other Systems: No Change from Baseline Past Medical History (General) - Patient Medical History Hx Seizures: Yes Hx Stroke: Yes Hx Dementia: No Hx Asthma: Yes Hx of COPD: Yes Hx Cardiac Disorders: Yes Hx Congestive Heart Failure: No Hx Pacemaker: No Hx Hypertension: No Hx Thyroid Disease: No Hx Diabetes: No Hx Gastroesophageal Reflux: No Hx Renal Disease: No Hx Cancer: No Hx of HIV: No Hx Hepatitis C: No Hx MRSA: No MRSA Source:: LUNGS - Vaccination History Hx Tetanus, Diphtheria Vaccination: Yes Hx Influenza Vaccination: Yes Hx Pneumococcal Vaccination: Yes - Social History Hx Tobacco Use: No Hx Chewing Tobacco Use: No Hx Alcohol Use: No Hx Substance Use: No Hx Substance Use Treatment: No Hx Depression: No Hx Physical Abuse: No Hx Emotional Abuse: No Hx Suspected Abuse: No - Activities of Daily Living Retirement[facility]Assisted Living (if applicable):: [facility] - Female History Patient : No Family Medical History - Family History Mother Family History: Unknown Living Status: Hx Family Asthma: No Hx Family Congestive Heart Failure: No Physical Exam - Physical Exam General Appearance: Alert, Comfortable, Well Developed, Well Hydrated, Well Nourished Eye Exam: bilateral normal Ears, Nose, Throat: other - Patient with a trach in place. Neck: non-tender, full range of motion Respiratory: chest non-tender, lungs clear, no respiratory distress, rhonchi - Diffusely throughout Cardiovascular/Chest: normal peripheral pulses, no murmur, tachycardia Gastrointestinal/Abdominal: normal bowel sounds, non tender, soft Extremity: non-tender, normal capillary refill, pelvis stable Neurologic: alert, aphasia Skin Exam: warm/dry, pallor Lymphatic: no adenopathy Progress - Progress Progress: Differential diagnosis: Seizure, hypoxia, CVA, COVID among others. 08/15/20 06:48 Patient's laboratory work is unremarkable. Patient with probable breakthrough seizure. Plan on discharge back to the [place] [facility] at this time. Patient stable for transfer. Wayne Del Rosario M.D. #[id number] - Results/Orders Results/Orders: 07/02/20 04:20 RESPIRATORY PANEL 2 Stat 07/02/20 04:30 EKG STAT Laboratory Results - last 24 hr 07/02/20 07/02/20 07/02/20 04:40 04:40 04:40 WBC 8.4 RBC 4.24 L Hgb 12.5 L Hct 36.6 L MCV 86.4 MCH 29.6 MCHC 34.2 RDW 14.3 Plt Count 269 MPV 7.5 Absolute Neuts (auto) 4.10 Absolute Lymphs (auto) 3.20 Absolute Monos (auto) 0.80 Absolute Eos (auto) 0.20 Absolute Basos (auto) 0.10 Neutrophils % 49.6 Lymphocytes % 37.8 Monocytes % 9.4 H Eosinophils % 2.6 Basophils % 0.6 Sodium 136 Potassium 4.2 Chloride 98 L Carbon Dioxide 24 Anion Gap 18.2 H BUN 20 H Creatinine 0.80 BUN/Creatinine Ratio 25.0 H Random Glucose 98 Serum Osmolality 274.5 L Lactic Acid 5.9 H* Calcium 9.2 Total Bilirubin 0.5 AST 56 H ALT 85 H Alkaline Phosphatase 77 Serum Total Protein 8.2 Albumin 3.9 Globulin 4.3 H Albumin/Globulin Ratio 0.9 L Urine Color Urine Appearance Urine pH Ur Specific [place] Urine Protein Urine Glucose (UA) Urine Ketones Urine Blood Urine Nitrite Urine Bilirubin Urine Urobilinogen Ur Leukocyte Esterase Urine RBC Urine WBC Ur Epithelial Cells Urine Bacteria 07/02/20 04:54 WBC RBC Hgb Hct MCV MCH MCHC RDW Plt Count MPV Absolute Neuts (auto) Absolute Lymphs (auto) Absolute Monos (auto) Absolute Eos (auto) Absolute Basos (auto) Neutrophils % Lymphocytes % Monocytes % Eosinophils % Basophils % Sodium Potassium Chloride Carbon Dioxide Anion Gap BUN Creatinine BUN/Creatinine Ratio Random Glucose Serum Osmolality Lactic Acid Calcium Total Bilirubin AST ALT Alkaline Phosphatase Serum Total Protein Albumin Globulin Albumin/Globulin Ratio Urine Color Yellow Urine Appearance Clear Urine pH 7.5 Ur Specific [place] 1.020 Urine Protein Negative Urine Glucose (UA) Negative Urine Ketones Negative Urine Blood Negative Urine Nitrite Negative Urine Bilirubin Negative Urine Urobilinogen 0.2 Ur Leukocyte Esterase Negative Urine RBC 0 Urine WBC 0 Ur Epithelial Cells 0 Urine Bacteria 0 07/02/20 04:30 EKG STAT Laboratory Results - last 24 hr 07/02/20 07/02/20 07/02/20 04:40 04:40 04:40 WBC 8.4 RBC 4.24 L Hgb 12.5 L Hct 36.6 L MCV 86.4 MCH 29.6 MCHC 34.2 RDW 14.3 Plt Count 269 MPV 7.5 Absolute Neuts (auto) 4.10 Absolute Lymphs (auto) 3.20 Absolute Monos (auto) 0.80 Absolute Eos (auto) 0.20 Absolute Basos (auto) 0.10 Neutrophils % 49.6 Lymphocytes % 37.8 Monocytes % 9.4 H Eosinophils % 2.6 Basophils % 0.6 Sodium 136 Potassium 4.2 Chloride 98 L Carbon Dioxide 24 Anion Gap 18.2 H BUN 20 H Creatinine 0.80 BUN/Creatinine Ratio 25.0 H Random Glucose 98 Serum Osmolality 274.5 L Lactic Acid 5.9 H* Calcium 9.2 Total Bilirubin 0.5 AST 56 H ALT 85 H Alkaline Phosphatase 77 Serum Total Protein 8.2 Albumin 3.9 Globulin 4.3 H Albumin/Globulin Ratio 0.9 L Urine Color Urine Appearance Urine pH Ur Specific [place] Urine Protein Urine Glucose (UA) Urine Ketones Urine Blood Urine Nitrite Urine Bilirubin Urine Urobilinogen Ur Leukocyte Esterase Urine RBC Urine WBC Ur Epithelial Cells Urine Bacteria 07/02/20 04:54 WBC RBC Hgb Hct MCV MCH MCHC RDW Plt Count MPV Absolute Neuts (auto) Absolute Lymphs (auto) Absolute Monos (auto) Absolute Eos (auto) Absolute Basos (auto) Neutrophils % Lymphocytes % Monocytes % Eosinophils % Basophils % Sodium Potassium Chloride Carbon Dioxide Anion Gap BUN Creatinine BUN/Creatinine Ratio Random Glucose Serum Osmolality Lactic Acid Calcium Total Bilirubin AST ALT Alkaline Phosphatase Serum Total Protein Albumin Globulin Albumin/Globulin Ratio Urine Color Yellow Urine Appearance Clear Urine pH 7.5 Ur Specific [place] 1.020 Urine Protein Negative Urine Glucose (UA) Negative Urine Ketones Negative Urine Blood Negative Urine Nitrite Negative Urine Bilirubin Negative Urine Urobilinogen 0.2 Ur Leukocyte Esterase Negative Urine RBC 0 Urine WBC 0 Ur Epithelial Cells 0 Urine Bacteria 0 Respiratory panel is negative which includes a negative cover test. Departure - Departure Clinical Impression: Seizure Time of Disposition: 06:49 Disposition: Discharge to SNF Condition: Fair Departure Forms: ED Discharge - Pt. Copy, Patient Portal Self Enrollment Instructions: Seizures, Adult (DC) Diet: resume usual diet Activity: as per physical therapy Referrals: CHOCO FRANCIS [Primary Care Provider] - 1-5 Days Home Medications: Ambulatory Orders Docusate Sodium [Diocto] 100 mg PEG BID #0 08/27/13 Esomeprazole Magnesium [Nexium] 40 mg PEG DAILY #0 08/27/13 Magnesium Hydroxide [Milk Of Magnesia] 30 ml PEG DAILY PRN #0 ud 08/27/13 Sennosides [Natural Senna Laxative] 1 tab PEG BID #0 08/27/13 Albuterol Sulfate Nebs [Proventil Nebs] 2.5 mg INH Q6H PRN 07/31/18 Aluminum & Magnesium Hydroxide [Maalox] 30 ml PEG DAILY PRN 07/31/18 Chlorhexidine Gluconate (Mouth [Chlorhexidine Gluconate] 0.12 % MT DAILY 07/31/18 Cyanocobalamin [B-12] 1,000 mcg PEG DAILY 07/31/18 FLUoxetine HCL [Prozac] 20 mg PEG DAILY 07/31/18 Ipratropium [place] Nebs [Atrovent NEBS] 2.5 ml INH BID 07/31/18 Lidocaine HCl (Cardiac) [Lidocaine HCl] 1 ml INH Q6H PRN 07/31/18 Bioflavonoid Products [[id number]] 1 tab PEG DAILY 07/02/20 Hydrocortisone 10 mg PO DAILY 07/02/20 Levothyroxine Sodium 75 mcg PEG 07/02/20 levETIRAcetam SUSPENSION [Keppra] 10 ml PEG BID 07/02/20
[2020-07-02 07:18] VITALS: BP 127/81; TEMP 97.7; O2SAT 92
== END 2020-07-02 07:11 ==
LOC: ER 04:16
DX: R56.9 Unspecified convulsions (principal); J44.9 Chronic obstructive pulmonary disease, unspecified; I51.9 Heart disease, unspecified; Z20.828 Contact with and (suspected) exposure to other viral communicable diseases; Z86.73 Personal history of transient ischemic attack (TIA), and cerebral infarction without residual deficits; Z79.899 Other long term (current) drug therapy; Z88.5 Allergy status to narcotic agent; Z88.2 Allergy status to sulfonamides

== ENCOUNTER 2020-12-10 08:27 | Emergency (ER) | payer MEDICARE, MEDICAID, OTHER ==
--- NOTE | 2020-12-10 08:50 | ED.PDOC ---
History of Present Illness - General Chief Complaint: Neuro Symptoms/Deficits Stated Complaint: AMS Time Seen by Provider: 12/10/20 08:30 Source: RN notes reviewed, Vital Signs reviewed, EMS notes reviewed, EMS, old records Exam Limitations: no limitations - History of Present Illness Initial Comments: 40 yo male with hx of tach and seizures comes in via EMS with AMS. Patient had seizure one day ago and was given ativan. Per report has been tired and confused since then. Patient briefly opens eyes, but then shuts. I do not know what patients baseline is. Per old documentation he is nonverbal. Allergies/Adverse Reactions: Allergies Hydrocodone Allergy (Mild, Verified 12/10/20 08:46) Other Rash, hives Morphine Allergy (Mild, Verified 12/10/20 08:46) Other Hives, itching, crying, humming Sulfamethoxazole w/Trimethoprim [From Bactrim] Allergy (Mild, Verified 12/10/20 08:46) Rash Home Medications: Ambulatory Orders Docusate Sodium [Diocto] 100 mg PEG BID #0 08/27/13 Esomeprazole Magnesium [Nexium] 40 mg PEG DAILY #0 08/27/13 Magnesium Hydroxide [Milk Of Magnesia] 30 ml PEG DAILY PRN #0 ud 08/27/13 Sennosides [Natural Senna Laxative] 1 tab PEG BID #0 08/27/13 Albuterol Sulfate Nebs [Proventil Nebs] 2.5 mg INH Q6H PRN 07/31/18 Aluminum & Magnesium Hydroxide [Maalox] 30 ml PEG DAILY PRN 07/31/18 Chlorhexidine Gluconate (Mouth [Chlorhexidine Gluconate] 0.12 % MT DAILY 07/31/18 Cyanocobalamin [B-12] 1,000 mcg PEG DAILY 07/31/18 FLUoxetine HCL [Prozac] 20 mg PEG DAILY 07/31/18 Ipratropium [place] Nebs [Atrovent NEBS] 2.5 ml INH BID 07/31/18 Lidocaine HCl (Cardiac) [Lidocaine HCl] 1 ml INH Q6H PRN 07/31/18 Bioflavonoid Products [[id number]] 1 tab PEG DAILY 07/02/20 Hydrocortisone 10 mg PO DAILY 07/02/20 Levothyroxine Sodium 75 mcg PEG 07/02/20 levETIRAcetam SUSPENSION [Keppra] 10 ml PEG BID 07/02/20 Azithromycin 250 mg PO DAILY #6 tab 12/10/20 Cefpodoxime Proxetil 200 mg PO BID #10 tab 12/10/20 Review of Systems - Review of Systems Unable to Obtain Due To: condition Past Medical History (General) - Patient Medical History Hx Seizures: Yes Hx Stroke: Yes Hx Dementia: No Hx Asthma: Yes Hx of COPD: Yes Hx Cardiac Disorders: Yes Hx Congestive Heart Failure: No Hx Pacemaker: No Hx Hypertension: No Hx Thyroid Disease: No Hx Diabetes: No Hx Gastroesophageal Reflux: No Hx Renal Disease: No Hx Cancer: No Hx of HIV: No Hx Hepatitis C: No Hx MRSA: No MRSA Source:: LUNGS - Vaccination History Hx Tetanus, Diphtheria Vaccination: Yes Hx Influenza Vaccination: Yes Hx Pneumococcal Vaccination: Yes - Social History Hx Tobacco Use: No Hx Chewing Tobacco Use: No Hx Alcohol Use: No Hx Substance Use: No Hx Substance Use Treatment: No Hx Depression: No Hx Physical Abuse: No Hx Emotional Abuse: No Hx Suspected Abuse: No - Activities of Daily Living [facility]isted Living (if applicable):: [facility] - Female History Patient is a Female of Child Bearing Age (10 -59 yrs old): No Patient : No Family Medical History - Family History Mother Family History: Unknown Living Status: Hx Family Asthma: No Hx Family Congestive Heart Failure: No Physical Exam - Physical Exam General Appearance: Comfortable, No apparent distress, Well Developed, Well Groomed, Well Hydrated, Well Nourished, Other - toro faces Eye Exam: bilateral normal, bilateral other - does have crusting on eyelashes Ears, Nose, Throat: hearing grossly normal, normal ENT inspection, normal pharynx Neck: supple, normal inspection Respiratory: chest non-tender, lungs clear, normal breath sounds, no respiratory distress, no accessory muscle use Cardiovascular/Chest: normal peripheral pulses, regular rate, rhythm, no edema, no gallop, no JVD, no murmur Peripheral Pulses: radial,right: 2+, radial,left: 2+ Gastrointestinal/Abdominal: normal bowel sounds, non tender, soft, no organomegaly Rectal Exam: deferred Back Exam: normal inspection, no vertebral tenderness Extremity: normal inspection Neurologic: other - moves all extremities, nonverbal. Skin Exam: normal color, warm/dry Progress - Progress Progress: 12/10/20 10:53 PSI score 72 CURB65 score -1 I suspect the increase fatigue is a combination from residual ativan and COVID. No current fever, vital signs are stable. Will discharged on antibiotics. The data reviewed when caring for this patient included: nurse notes, prior records, etc. The history and assessments from nurses notes were reviewed and considered, and the patient's home medication list was also reviewed and considered. My assessment and the results of testing completed here in the ED were discussed with the patient UPon discharge patient alert. Nonverbal. Easily falls back asleep. He was discharged to snf in stable condition. Gia Goodwin DO #[id number] delay in dispo due to [facility]id beds [facility]. 12/10/20 14:57 - EKG/XRAY/CT XRAY: chest - bilateral lower lobe infiltrate vs atelectasis. CT: no acute pathology when compared to 02/2019. CT Ordered: Yes Departure - Departure Clinical Impression: Pneumonia due to COVID-19 virus Time of Disposition: 11:10 Disposition: Discharge to SNF Departure Forms: ED Discharge - Pt. Copy, Patient Portal Self Enrollment Instructions: Coronavirus Disease 2019 (COVID-19) Overview Diet: resume usual diet Activity: increase activity as tolerated Referrals: [facility] FRANCIS [Primary Care Provider] - 1-2 Days Prescriptions: Azithromycin 250 mg PO DAILY #6 tab Cefpodoxime Proxetil 200 mg PO BID #10 tab Home Medications: Ambulatory Orders Docusate Sodium [Diocto] 100 mg PEG BID #0 08/27/13 Esomeprazole Magnesium [Nexium] 40 mg PEG DAILY #0 08/27/13 Magnesium Hydroxide [Milk Of Magnesia] 30 ml PEG DAILY PRN #0 ud 08/27/13 Sennosides [Natural Senna Laxative] 1 tab PEG BID #0 08/27/13 Albuterol Sulfate Nebs [Proventil Nebs] 2.5 mg INH Q6H PRN 07/31/18 Aluminum & Magnesium Hydroxide [Maalox] 30 ml PEG DAILY PRN 07/31/18 Chlorhexidine Gluconate (Mouth [Chlorhexidine Gluconate] 0.12 % MT DAILY 07/31/18 Cyanocobalamin [B-12] 1,000 mcg PEG DAILY 07/31/18 FLUoxetine HCL [Prozac] 20 mg PEG DAILY 07/31/18 Ipratropium [place] Nebs [Atrovent NEBS] 2.5 ml INH BID 07/31/18 Lidocaine HCl (Cardiac) [Lidocaine HCl] 1 ml INH Q6H PRN 07/31/18 Bioflavonoid Products [[id number]] 1 tab PEG DAILY 07/02/20 Hydrocortisone 10 mg PO DAILY 07/02/20 Levothyroxine Sodium 75 mcg PEG 07/02/20 levETIRAcetam SUSPENSION [Keppra] 10 ml PEG BID 07/02/20 Azithromycin 250 mg PO DAILY #6 tab 12/10/20 Cefpodoxime Proxetil 200 mg PO BID #10 tab 12/10/20
--- NOTE | 2020-12-10 09:58 | CT ---
EXAM: CT head without contrast HISTORY: confusion, seizure COMPARISON: CT head 03/05/2019 TECHNIQUE: Head/brain axial images acquired without contrast. Coronal and sagittal reformats created. Exam performed according to departmental dose-optimization program which includes automated exposure control, adjustment of mA and/or kV according to patient size, and/or use of iterative reconstruction technique. FINDINGS: No midline shift or acute intracranial hemorrhage. Large right frontal lobe superior aspect mass measures about 4.4 x 3.5 x 3.4 cm (axial series 2, image 23; sagittal series 602, image 27). This superior right frontal region mass again causes marked effacement upon right lateral ventricle. Superior left frontal lobe region mass measures about 1.5 x 1.4 x 1.3 cm (axial series 2, image 27; sagittal series 602, image 44). Mild hypodense periventricular cerebral white matter abnormality. This may represent more likely transependymal CSF flow or less likely chronic small vessel ischemia. Chronic parenchymal calcifications in left cerebellar hemisphere. Left lateral ventricle is again markedly dilated. Right lateral ventricle, third ventricle, and fourth ventricle appear moderately dilated. Mild opacification of the left posterior ethmoid sinus. Right-sided DISINTEGRATOR FEEDER shunt catheter courses through right lateral ventricle's frontal horn and has proximal tip in third ventricle near right interventricular foramen of [place]. Metallic device located along left occipital scalp causes marked metallic artifact obscuring surrounding structures. IMPRESSION: No significant change from CT head of 03/05/2019. No midline shift or acute intracranial hemorrhage. Large right frontal lobe superior aspect mass measures about 4.4 x 3.5 x 3.4 cm. This superior right frontal region mass again causes marked effacement upon right lateral ventricle. Superior left frontal lobe region mass measures about 1.5 x 1.4 x 1.3 cm. Mild hypodense periventricular cerebral white matter abnormality. This may represent more likely transependymal CSF flow or less likely chronic small vessel ischemia. Chronic parenchymal calcifications in left cerebellar hemisphere. Left lateral ventricle is again markedly dilated. Right lateral ventricle, third ventricle, and fourth ventricle appear moderately dilated. Right-sided DISINTEGRATOR FEEDER shunt catheter courses through right lateral ventricle's frontal horn and has proximal tip in third ventricle near right interventricular foramen of [place]. Metallic device located along left occipital scalp causes marked metallic artifact obscuring surrounding structures. Electronically signed by: Migue Taylor MD 12/10/2020 9:56 AM [employer]RED[employer]/GRANULATOR OPER[employer]
--- NOTE | 2020-12-10 10:05 | RAD ---
EXAM: Chest 1 View HISTORY: confusion COMPARISON: Chest 1 View AP 07/02/2020 TECHNIQUE: Chest 1 View AP FINDINGS: Trachea midline. Marked decreased inspiration (decreased lung volumes) makes evaluation more difficult and may accentuate heart size and pulmonary vascularity. Heart size likely within normal limits. No pneumothorax. Mild hazy right lower lung field opacity. Moderate dense left lower lung/chest (retrocardiac) opacity. No acute fracture. Tracheostomy tube in place. Right-sided TELEGRAPH OFFICE MANAGER shunt catheter noted. IMPRESSION: 1. Moderate dense left lower lung/chest (retrocardiac) opacity. This may represent atelectasis, consolidation, and/or pleural effusion. 2. Mild hazy right lower lung field opacity. This may represent subsegmental atelectasis, infection, pulmonary edema, or scar/fibrosis. 3. Tracheostomy tube and right-sided TELEGRAPH OFFICE MANAGER shunt catheter. After appropriate medical therapy, follow up chest radiograph in 4 weeks recommended for evaluation of resolution. Electronically signed by: Migue Taylor MD 12/10/2020 10:03 AM [facility]
[2020-12-10 19:04] VITALS: BP 145/96; O2SAT 97
[2020-12-10 19:05] VITALS: TEMP 98.2
== END 2020-12-10 18:00 ==
LOC: ER 08:27
DX: U07.1 COVID-19 (principal); J12.82 Pneumonia due to coronavirus disease 2019; R41.82 Altered mental status, unspecified; R56.9 Unspecified convulsions; Z93.0 Tracheostomy status; I51.9 Heart disease, unspecified; J44.9 Chronic obstructive pulmonary disease, unspecified; Z86.73 Personal history of transient ischemic attack (TIA), and cerebral infarction without residual deficits; Z86.14 Personal history of Methicillin resistant Staphylococcus aureus infection; Z79.899 Other long term (current) drug therapy; Z88.5 Allergy status to narcotic agent; Z88.2 Allergy status to sulfonamides

== ENCOUNTER 2020-12-17 06:19 | Emergency (ER) | payer MEDICARE, MEDICAID, OTHER ==
[2020-12-17] MEDS ORDERED: SODIUM CHLORIDE 0.9% 1000ML 1,000 ML IVS ONE (06:28)
--- NOTE | 2020-12-17 06:29 | ED.PDOC ---
History of Present Illness - General Source: RN notes reviewed, Vital Signs reviewed, EMS notes reviewed, EMS, custodial records, old records Exam Limitations: physical impairment - History of Present Illness Initial Comments: 40 yo male with hx of trach, brain tumors and seizures is sent from custodial after seizure for altered mental status. Per EMS was sent here because custodial wanted a CT scan of brain. Had CT scan last week for similar presentation which showed brain tumors and findings were unchanged from previous CT SCAN in February 2019. Last week patient did have + COVID test, which appears to be a false positive, since then he has had four negative test at the custodial. Patient was given his usual 0.5 mg ativan this AM per EMS. Seizure was partial occurred at 545 this AM. Per staff he just isn't him self. Patient awake, alert, but does not follow commands. He is mute at baseline. Timing/Duration: 1/2 hour Severity: moderate <Gia Goodwin - Last Filed: 12/17/20 06:54> <Ana العراقي - Last Filed: 12/17/20 09:53> - General Time Seen by Provider: 12/17/20 06:24 - History of Present Illness Allergies/Adverse Reactions: Allergies Hydrocodone Allergy (Mild, Verified 12/10/20 08:46) Other Rash, hives Morphine Allergy (Mild, Verified 12/10/20 08:46) Other Hives, itching, crying, humming Sulfamethoxazole w/Trimethoprim [From Bactrim] Allergy (Mild, Verified 12/10/20 08:46) Rash Home Medications: Ambulatory Orders Docusate Sodium [Diocto] 100 mg PEG BID #0 08/27/13 Esomeprazole Magnesium [Nexium] 40 mg PEG DAILY #0 08/27/13 Magnesium Hydroxide [Milk Of Magnesia] 30 ml PEG DAILY PRN #0 ud 08/27/13 Sennosides [Natural Senna Laxative] 1 tab PEG BID #0 08/27/13 Albuterol Sulfate Nebs [Proventil Nebs] 2.5 mg INH Q6H PRN 07/31/18 Aluminum & Magnesium Hydroxide [Maalox] 30 ml PEG DAILY PRN 07/31/18 Chlorhexidine Gluconate (Mouth [Chlorhexidine Gluconate] 0.12 % MT DAILY 07/31/18 Cyanocobalamin [B-12] 1,000 mcg PEG DAILY 07/31/18 FLUoxetine HCL [Prozac] 20 mg PEG DAILY 07/31/18 Ipratropium [place] Nebs [Atrovent NEBS] 2.5 ml INH BID 07/31/18 Lidocaine HCl (Cardiac) [Lidocaine HCl] 1 ml INH Q6H PRN 07/31/18 Bioflavonoid Products [[id number]] 1 tab PEG DAILY 07/02/20 Hydrocortisone 10 mg PO DAILY 07/02/20 Levothyroxine Sodium 75 mcg PEG 07/02/20 levETIRAcetam SUSPENSION [Keppra] 10 ml PEG BID 07/02/20 Azithromycin 250 mg PO DAILY #6 tab 12/10/20 Cefpodoxime Proxetil 200 mg PO BID #10 tab 12/10/20 Amoxicillin & Pot Clavulanate [Augmentin Tab] 875 mg GT BID #20 tab 12/17/20 Clindamycin Suspension [Cleocin Ped Susp] 300 mg GT Q8HR #7 day 12/17/20 Review of Systems - Review of Systems Unable to Obtain Due To: condition <Gia Goodwin Last Filed: 12/17/20 06:54> Past Medical History (General) - Patient Medical History Hx Seizures: Yes Hx Stroke: Yes Hx Dementia: No Hx Asthma: Yes Hx of COPD: Yes Hx Cardiac Disorders: Yes Hx Congestive Heart Failure: No Hx Pacemaker: No Hx Hypertension: No Hx Thyroid Disease: No Hx Diabetes: No Hx Gastroesophageal Reflux: No Hx Renal Disease: No Hx Cancer: No Hx of HIV: No Hx Hepatitis C: No Hx MRSA: No MRSA Source:: LUNGS - Vaccination History Hx Tetanus, Diphtheria Vaccination: Yes Hx Influenza Vaccination: Yes Hx Pneumococcal Vaccination: Yes - Social History Hx Tobacco Use: No Hx Chewing Tobacco Use: No Hx Alcohol Use: No Hx Substance Use: No Hx Substance Use Treatment: No Hx Depression: No Hx Physical Abuse: No Hx Emotional Abuse: No Hx Suspected Abuse: No - Female History Patient : No <Gia Goodwin Last Filed: 12/17/20 06:54> Family Medical History - Family History Mother Family History: Unknown Living Status: Hx Family Asthma: No Hx Family Congestive Heart Failure: No <Gia Goodwin Last Filed: 12/17/20 06:54> Physical Exam - Physical Exam General Appearance: Alert, Well Hydrated, Well Nourished, Other - seborrheic dermatitis. Patient is mute at baseline. Eye Exam: bilateral normal, bilateral other - crusting around eyelashes ENT Exam: normal ENT inspection, hearing grossly normal, other - right TM normal, unable to see left TM due to cerumen impaction. Neck: non-tender, full range of motion, supple, normal inspection, trachea midline Respiratory: chest non-tender, no respiratory distress, no accessory muscle use, other - trach in place, diminshed at bases. Cardiovascular/Chest: normal peripheral pulses, no murmur, tachycardia Peripheral Pulses: radial,right: 2+, radial,left: 2+ Gastrointestinal/Abdominal: non tender, soft, other - PEG tube in place. 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 Coordination/Gait: other - patient bed bound. Skin Exam: warm/dry <Gia Goodwin - Last Filed: 12/17/20 06:54> - Physical Exam Comments: Vital Signs - 24 hr 12/17/20 12/17/20 12/17/20 06:20 07:30 08:30 Temperature 97.7 F 97.9 F 97.9 F Pulse Rate 122 H Pulse Rate [ 122 H 125 H 120 H tele monitor] Respiratory 22 24 22 Rate Blood Pressure 118/75 139/81 143/92 [Left Arm] O2 Sat by Pulse 99 100 100 Oximetry 12/17/20 09:02 Temperature 98.9 F Pulse Rate Pulse Rate [ tele monitor] Respiratory Rate Blood Pressure [Left Arm] O2 Sat by Pulse Oximetry Heart rate down to the 100-115 range. Sinus rhythm on telemetry. <Ana العراقي - Last Filed: 12/17/20 09:53> Progress - Progress Progress: 12/17/20 06:41 Partial ddx: pneumonia, UTI, postictal state, dehydration. Patient has known seizures, Had unchanged CT scan one week ago, do not feel another is warranted at this time. Will get baseline blood work. Will check CXR and UA for infection. Will rehydrate. Suspect patient may benefit from a neurologist and MRI brain as an outpatient. We will clean out left wax to view his TM to make sure that is not a source of infection. Pending blood work, chest xray. Patient transferred to oncoming physician. 12/17/20 06:45 - EKG/XRAY/CT EKG: Sinus, Tachy - HR 123, q wave inferior lead, normal intervals, motion artifiact, Changed from - 12/10/20 now tachycardic, otherwise no significant change. <Gia Goodwin - Last Filed: 12/17/20 06:54> - Progress Progress: 12/17/20 09:48 The patient is a 40-year-old male presenting to the emergency room after having had a seizure. He does have a history of epilepsy and multiple chronic problems and is on a trach collar. The patient is not hypoxic on his routine oxygen level. No evidence of respiratory distress. He has mildly tachycardic. Tachycardia did improve somewhat after a liter of IV fluids. The patient appears to have a small left lower lobe infiltrate and was placed on Augmentin and clindamycin for the next 10 days. Additionally he has an ethmoid sinusitis which these antibiotics should treat well. The patient has had his morning doses of Keppra and hydrocortisone. CT scan of the head showed no acute changes when compared to previous done a week ago. He tested negative again for coronavirus. ABG shows only very mild CO2 retention. He is going to be transferred back to his long-term care facility. Obviously if condition changes for the worse in someway that he can certainly be reevaluated. He does need to follow-up with his primary care doctor in the coming week. ER warnings are given. aan raymond [phone] - Results/Orders Results/Orders: Chest x-ray shows left lower lobe infiltrate. CT scan of the head with IV contrast shows no acute changes. CT scan is consistent with previous CT scan. He does have an ethmoid sinusitis as seen on the previous CT scan. He tested negative for coronavirus. 12/17/20 07:00 EKG STAT EKG STAT 12/17/20 07:34 BLOOD CULTURE Stat 12/17/20 07:52 SPUTUM CULTURE Stat 12/17/20 08:04 Hold Metformin x 48Hrs [id number] 12/17/20 08:10 LEVETIRACETAM (KEPPRA) Stat Laboratory Results - last 24 hr 12/17/20 12/17/20 12/17/20 06:37 06:37 06:37 WBC 14.7 H RBC 3.73 L Hgb 10.3 L Hct 31.9 L MCV 85.4 MCH 27.7 MCHC 32.4 L RDW 15.3 H Plt Count 417 H MPV 6.9 L Absolute Neuts (auto) 10.30 H Absolute Lymphs (auto) 2.40 Absolute Monos (auto) 1.70 H Absolute Eos (auto) 0.20 Absolute Basos (auto) 0.20 H Neutrophils % 69.7 Lymphocytes % 16.2 L Monocytes % 11.4 H Eosinophils % 1.7 Basophils % 1.0 pCO2 pO2 HCO3 ABG pH ABG O2 Saturation ABG Base Excess ABG Deoxyhemoglobin Oxyhemoglobin % Carboxyhemoglobin % Methemoglobin % Sat Calc Total Hemoglobin Sodium 134 L Potassium 4.3 Chloride 92 L Carbon Dioxide 30 Anion Gap 16.3 BUN 25 H Creatinine 0.72 BUN/Creatinine Ratio 34.7 H Random Glucose 197 H Serum Osmolality 278.1 Lactic Acid Calcium 9.2 Magnesium 2.0 Total Bilirubin 0.5 AST 17 ALT 22 Alkaline Phosphatase 87 Serum Total Protein 7.9 Albumin 3.4 Globulin 4.5 H Albumin/Globulin Ratio 0.8 L TSH 2.11 Urine Color Urine Appearance Urine pH Ur Specific [place] Urine Protein Urine Glucose (UA) Urine Ketones Urine Blood Urine Nitrite Urine Bilirubin Urine Urobilinogen Ur Leukocyte Esterase Urine RBC Urine WBC Ur Epithelial Cells Urine Bacteria 12/17/20 12/17/20 12/17/20 07:34 08:04 08:10 WBC RBC Hgb Hct MCV MCH MCHC RDW Plt Count MPV Absolute Neuts (auto) Absolute Lymphs (auto) Absolute Monos (auto) Absolute Eos (auto) Absolute Basos (auto) Neutrophils % Lymphocytes % Monocytes % Eosinophils % Basophils % pCO2 52 H pO2 123 H* HCO3 33.3 ABG pH 7.413 ABG O2 Saturation 98.9 ABG Base Excess 7.4 ABG Deoxyhemoglobin 1.1 Oxyhemoglobin % 97.2 Carboxyhemoglobin % 0.6 Methemoglobin % Sat 1.1 Calc Total Hemoglobin 11.1 L Sodium Potassium Chloride Carbon Dioxide Anion Gap BUN Creatinine BUN/Creatinine Ratio Random Glucose Serum Osmolality Lactic Acid 1.7 Calcium Magnesium Total Bilirubin AST ALT Alkaline Phosphatase Serum Total Protein Albumin Globulin Albumin/Globulin Ratio TSH Urine Color Yellow Urine Appearance Clear Urine pH 6.0 Ur Specific [place] 1.025 Urine Protein Negative Urine Glucose (UA) Negative Urine Ketones Negative Urine Blood Trace-intact H Urine Nitrite Negative Urine Bilirubin Negative Urine Urobilinogen 0.2 Ur Leukocyte Esterase Negative Urine RBC 1-3 Urine WBC 0 Ur Epithelial Cells 0 Urine Bacteria 0 <Ana العراقي - Last Filed: 12/17/20 09:53> Departure - Departure Diet: resume usual diet <Gia Goodwin - Last Filed: 12/17/20 06:54> - Departure Diet: resume usual diet, other <Ana العراقي - Last Filed: 12/17/20 09:53> - Departure Clinical Impression: Postictal state Cerumen impaction Qualifiers: Laterality: bilateral Qualified Code(s): H61.23 - Impacted cerumen, bilateral Ethmoid sinusitis Qualifiers: Chronicity: chronic Qualified Code(s): J32.2 - Chronic ethmoidal sinusitis Left lower lobe pneumonia Qualifiers: Pneumonia type: due to unspecified organism Qualified Code(s): J18.9 - Pneumonia, unspecified organism Disposition: Discharge to SNF Condition: Fair Referrals: CHOCO FRANCIS [Primary Care Provider] - 1-5 Days Prescriptions: Clindamycin Suspension [Cleocin Ped Susp] 300 mg GT Q8HR #7 day Amoxicillin & Pot Clavulanate [Augmentin Tab] 875 mg GT BID #20 tab Home Medications: Ambulatory Orders Docusate Sodium [Diocto] 100 mg PEG BID #0 08/27/13 Esomeprazole Magnesium [Nexium] 40 mg PEG DAILY #0 08/27/13 Magnesium Hydroxide [Milk Of Magnesia] 30 ml PEG DAILY PRN #0 ud 08/27/13 Sennosides [Natural Senna Laxative] 1 tab PEG BID #0 08/27/13 Albuterol Sulfate Nebs [Proventil Nebs] 2.5 mg INH Q6H PRN 07/31/18 Aluminum & Magnesium Hydroxide [Maalox] 30 ml PEG DAILY PRN 07/31/18 Chlorhexidine Gluconate (Mouth [Chlorhexidine Gluconate] 0.12 % MT DAILY 07/31/18 Cyanocobalamin [B-12] 1,000 mcg PEG DAILY 07/31/18 FLUoxetine HCL [Prozac] 20 mg PEG DAILY 07/31/18 Ipratropium [place] Nebs [Atrovent NEBS] 2.5 ml INH BID 07/31/18 Lidocaine HCl (Cardiac) [Lidocaine HCl] 1 ml INH Q6H PRN 07/31/18 Bioflavonoid Products [[id number]] 1 tab PEG DAILY 07/02/20 Hydrocortisone 10 mg PO DAILY 07/02/20 Levothyroxine Sodium 75 mcg PEG 07/02/20 levETIRAcetam SUSPENSION [Keppra] 10 ml PEG BID 07/02/20 Azithromycin 250 mg PO DAILY #6 tab 12/10/20 Cefpodoxime Proxetil 200 mg PO BID #10 tab 12/10/20 Amoxicillin & Pot Clavulanate [Augmentin Tab] 875 mg GT BID #20 tab 12/17/20 Clindamycin Suspension [Cleocin Ped Susp] 300 mg GT Q8HR #7 day 12/17/20 Additional Instructions: The patient is a 40-year-old male presenting to the emergency room after having had a seizure. He does have a history of epilepsy and multiple chronic problems and is on a trach collar. The patient is not hypoxic on his routine oxygen level. No evidence of respiratory distress. He has mildly tachycardic. Tachycardia did improve somewhat after a liter of IV fluids. The patient appears to have a small left lower lobe infiltrate and was placed on Augmentin and clindamycin for the next 10 days. Additionally he has an ethmoid sinusitis which these antibiotics should treat well. The patient has had his morning doses of Keppra and hydrocortisone. CT scan of the head showed no acute changes when compared to previous done a week ago. He tested negative again for coronavirus. ABG shows only very mild CO2 retention. He is going to be transferred back to his long-term care facility. Obviously if condition changes for the worse in someway that he can certainly be reevaluated. He does need to follow-up with his primary care doctor in the coming week. ER warnings are given.
--- NOTE | 2020-12-17 07:08 | RAD ---
EXAM: X-RAY CHEST, 1 VIEW HISTORY: tachycardia. COMPARISON: Chest x-ray from 12/10/2020. TECHNIQUE: AP view of the chest. FINDINGS: Lines/tubes: Stable position of a tracheostomy tube and calcified right chest wall shunt tubing. Lungs: Stable shallow inspiration and mild bibasilar interstitial airspace opacities, worse on the left than the right. Pleural space: No pneumothorax or pleural effusion. Heart: Normal size. Bones: No acute abnormality. IMPRESSION: Stable bibasilar pulmonary opacities. Electronically signed by: Brendan Hernandes MD 12/17/2020 7:06 AM [facility]
[2020-12-17] MEDS ORDERED: levETIRAcetam SUSPENSION 100 MG/ML BTTL GT ONE (07:18)
[2020-12-17] MEDS ORDERED: HYDROCORTISONE 20 MG TAB GT ONE (07:18)
--- NOTE | 2020-12-17 09:29 | CT ---
EXAM: CT HEAD WITHOUT CONTRAST HISTORY: mild altered level of awareness, known mass and hydrocephalous. TECHNIQUE: CT of the head was obtained without contrast. The CT exam was performed using one or more of the following dose reduction techniques: Automated exposure control, adjustment of the mA and/or kV according to patient size, and/or use of iterative reconstruction technique. COMPARISON: Head CT from 12/10/2020. White matter stable moderate encephalomalacia superiorly in the left frontal lobe.. FINDINGS: Parenchyma: No mass, acute hemorrhage or CT evidence of large acute vascular territory insult. Stable moderate confluent periventricular hypodensities, likely due to chronic small vessel ischemic changes. Stable calcified chronic left cerebellar infarct and moderate diffuse cerebellar atrophy. Clips or coils are present posterior to the left cavernous sinus and adjacent to the left petrous ridge. Ventricles: Marked ex vacuo dilatation of the left lateral ventricle and mild right lateral ventriculomegaly are stable. The tip of a right frontal approach ventricular shunt ends in the third ventricle. No kink or break in the tubing. Extra-axial spaces: Stable extra-axial masses overlying the right frontal lobe and left frontal lobe. The largest of the right frontal lobe measuring 4.4 x 3.9 cm. Moderate mass effect on the right frontal lobe superiorly is stable Dural sinuses: No abnormal densities. Paranasal sinuses/Mastoid air cells: Mucosal thickening posteriorly in the left ethmoid sinus. Left canal wall up mastoidectomy. Stable cochlear implant on the left. Scalp/Skull: No abnormalities. IMPRESSION: 1. Stable exam with a right ventricular shunt in place and stable suspected mild right hydrocephalus. Stable marked ex vacuo dilatation of the left lateral ventricle. 2. Stable extra-axial masses over the bilateral frontal lobes. Moderate mass effect over the right frontal lobe is stable. 3. Other chronic changes are stable. Electronically signed by: Brendan Hernandes MD 12/17/2020 9:27 AM [facility]
[2020-12-17] MEDS ORDERED: AMOXICILLIN & POT CLAVULANATE 875 MG TAB GT ONE (09:45)
[2020-12-17] MEDS ORDERED: CLINDAMYCIN HCL CAP 150 MG CAP GT ONE (09:46)
[2020-12-17 10:12] VITALS: BP 131/96; TEMP 98
[2020-12-17 12:05] VITALS: O2SAT 100
== END 2020-12-17 10:25 ==
LOC: ER 06:19
DX: J18.9 Pneumonia, unspecified organism (principal); R41.82 Altered mental status, unspecified; J32.2 Chronic ethmoidal sinusitis; H61.23 Impacted cerumen, bilateral; G40.909 Epilepsy, unspecified, not intractable, without status epilepticus; J44.9 Chronic obstructive pulmonary disease, unspecified; I51.9 Heart disease, unspecified; Z93.0 Tracheostomy status; Z20.822 Contact with and (suspected) exposure to COVID-19; Z93.1 Gastrostomy status; Z86.73 Personal history of transient ischemic attack (TIA), and cerebral infarction without residual deficits; Z79.899 Other long term (current) drug therapy; Z88.2 Allergy status to sulfonamides; Z88.5 Allergy status to narcotic agent; Z86.011 Personal history of benign neoplasm of the brain
CPT/HCPCS: 36415; 36600; 70460; 71045; 80053; 80177; 81001; 82803; 82805; 83605; 83735; 84443; 85025; 87040; 87635; 93005; J7030